=== PATIENT | female | born 1995 | race Caucasian/White ===

== ENCOUNTER 2017-07-06 09:17 | Emergency (ER) | payer OTHER ==
[~2017-07-06] VITALS: Ht 157.5 cm; Wt 86.4 kg
[2017-07-06 09:23] VITALS: BP 133/93
--- NOTE | 2017-07-06 09:29 | NUR ---
PT AMBULATED TO BED 2
--- NOTE | 2017-07-06 09:35 | NUR ---
22f presents to er with c/o 9/10 "all over headache" since this am s/p consuming alcohol yesterday. Pt states she consumed over 8 mixed drinks. Pt also reports 1 episode of emesis and 6/10 left foot pain s/p falling yesterday. Pt denies any loc. Swelling noted to left foot. Skin and cms intact. NAD. Pt positioned to comfort, bed down. NAD. ER MD [place] by bedside. Will continue to monitor.
[2017-07-06] MEDS ORDERED: NACL 0.9% 1,000 ML IV ONE (09:40)
[2017-07-06] MEDS ORDERED: FAMOTIDINE 20 MG/2 ML VIAL IVP ONE (09:40)
[2017-07-06] MEDS ORDERED: KETOROLAC 30 MG/ML VIAL IVP ONE (09:40)
[2017-07-06] MEDS ORDERED: ONDANSETRON 4 MG/2 ML VIAL IVP ONE (09:40)
[2017-07-06 11:24] VITALS: BP 122/84
--- NOTE | 2017-07-06 11:26 | NUR ---
Patient discharged with v/s stable. Written and verbal after care instructions given and explained. Patient alert, oriented and verbalized understanding of instructions. Ambulatory with steady gait. All questions addressed prior to discharge. ID band removed. Patient advised to follow up with PMD. Rx of naproxyn given. Patient educated on indication of medication including possible reaction and side effects. Opportunity to ask questions provided and answered.
== END 2017-07-06 11:26 | disposition home or self-care (01) ==
LOC: MED 09:17
DX: T51.91XA Toxic effect of unspecified alcohol, accidental (unintentional), initial encounter (principal); S99.912A Unspecified injury of left ankle, initial encounter; R03.0 Elevated blood-pressure reading, without diagnosis of hypertension; Z88.1 Allergy status to other antibiotic agents; W01.0XXA Fall on same level from slipping, tripping and stumbling without subsequent striking against object, initial encounter; Y93.89 Activity, other specified; Y92.89 Other specified places as the place of occurrence of the external cause; Y99.8 Other external cause status
CPT/HCPCS: 73610; 81025; 96361; 96374; 96375; 99284; J1885; J2405; J3490; J7030; Q0092